=== PATIENT | male | born 1945 | race Caucasian/White ===

== ENCOUNTER 2022-08-26 09:00 | Outpatient (RCR) | payer MEDICARE, OTHER, SELFPAY | END 2023-01-15 11:49 | disposition home or self-care (01) | LOC: HO.OT 09:00 | PROVIDERS: PCP Student in an Organized Health Care Education/Training Program; Visit Provider Surgery Vascular Surgery | DX: I89.0 Lymphedema, not elsewhere classified (principal) | CPT/HCPCS: 97110; 97140; 97167 ==

== ENCOUNTER 2024-12-20 10:56 | Outpatient (AMB) | payer MEDICARE, OTHER, SELFPAY ==
--- OUTSIDE RECORDS SUMMARY | 2024-12-20 13:20 | XMS_ITS | Clinical Summary ---
Author Organization [facility]. Address [address] [place] [address] Phone Care Team Providers Care Head Teller Name Role Phone Fernanda Munoz Primary Care Provider [phone] Allergies Active Allergy Reactions Criticality Noted Date Comments Doxycycline 07/05/2012 Other reaction(s): Rash Sulfamethoxazole-Trimethopri m 12/01/2023 Other Reaction(s): Rash Terbinafine Hcl Rash Low 01/31/2020 Medications aspirin (ST HARDIK) 81 MG EC tablet Take 81 mg by mouth 1 (one) time each day Active valsartan-hydro CHLOROthiazide (DIOVAN-HCT) 320-25 MG per tablet Take 1 tablet by mouth 1 (one) time each day Active Multiple Vitamin (multivitamin) tablet Take 1 tablet by mouth 1 (one) time each day Active cholecalciferol (VITAMIN D-3) 25 MCG (1000 UT) tablet Take 1,000 Units by mouth 1 (one) time each day Active metFORMIN (GLUCOPHAGE) 500 MG tablet Take 500 mg by mouth in the morning and 500 mg in the evening. Take with meals. Active NIFEdipine XL (PROCARDIA XL) 60 MG 24 hr tablet Take 1 tablet (60 mg total) by mouth 1 (one) time each day Do not crush, chew, or split. 90 tablet 3 09/02/2024 6 Active Active Problems Problem Noted Date Diagnosed Date Chronic kidney disease, stage 2 (mild) 4 Stage 3a chronic kidney disease 03/27/2023 Disorder of abdominal wall 09/19/2022 Pain of knee region 09/19/2022 Postnasal drip 09/19/2022 Severe obesity 09/19/2022 Spinal stenosis of lumbar region 09/19/2022 Injury of kidney 11/01/2021 Hypertensive chronic kidney disease 10/05/2021 Hypertension 04/09/2010 Resolved Problems Problem Noted Date Diagnosed Date Resolved Date Allergic rhinitis 12/07/2021 12/07/2021 Gastroesophageal reflux disease 12/07/2021 12/07/2021 Obese class I 12/07/2021 12/07/2021 Peripheral edema 11/01/2021 12/07/2021 Tinnitus 04/08/2013 12/07/2021 Immunizations Immunization Administration Dates Next Due DT 07/18/2005 Moderna SARS-COV-2 02/16/2021,07/09/2020, 021 Pneumococcal Conjugate 13-Valent 04/03/2015 Pneumococcal Polysaccharide 06/28/2013 Tdap 04/29/2012 Zoster 05/06/2012 Family History Relation Status Comments Mother Social History Tobacco Use Types Packs/Day Years Used Date Smoking Tobacco: Former Cigarettes Smokeless Tobacco: Never Tobacco Cessation:Counseling Given: Not Answered Alcohol Use Standard Drinks/Week Comments Yes 0 (1 standard drink = 0.6 oz pur e alcohol) Sex and Gender Information Value Date Recorded Sex Assigned at Not on file Legal Sex Male 8:01 AM EDT Gender Identity Not on file Sexual Orientation Not on file Last Filed Vital Signs Vital Sign Reading Time Taken Comments Blood Pressure 156/76 12/01/2023 1:51 PM EDT Pulse 56 09/02/2024 12:59 PM EDT Temperature - - Respiratory Rate - - Oxygen Saturation 97% 12/01/2023 1:31 PM EDT Inhaled Oxygen Concentration - - Weight 91.2 kg (201 lb) 09/02/2024 12:59 PM EDT Height 177.8 cm (5' 10 ) 12/01/2023 1:31 PM EDT Body Mass Index 28.84 12/01/2023 1:31 PM EDT Plan of Treatment Upcoming Encounters Date Type Department Care Team (Late st Contact Info) Description 09/01/2025 1:00 PM EDT Office Visit [facility] [address] [place] [phone] Leobardo Salomon MD [address] [address] Health Maintenance Due Date Last Done Comments Diabetes: Hemoglobin A1C 12/01/2023 Diabetes: Ophthalmology Exam 12/01/2023 Diabetes: Pedal Pulse Checked 12/01/2023 Diabetes: Sensory Foot Exam 12/01/2023 Diabetes: Visual Foot Exam 12/01/2023 Influenza Vaccine (#1) 2024 03/20/2022 Pneumococcal Vaccine: 50+ Years Completed 04/03/2015, 06/28/2013 Hepatitis B Vaccine Aged Out No longe r eligible based on patient's age to complete this topic Insurance [facility] Medicare [facility] Care Teams Head Teller Relationship Specialty Start Date End Date Fernanda Munoz PA [address] [place] [address] PCP - General 09/19/22
== END 2024-12-20 10:57 | disposition home or self-care (01) ==
LOC: HO.HMGAL 10:56
PROVIDERS: PCP Student in an Organized Health Care Education/Training Program; Visit Provider Registered Nurse Emergency
DX: J30.89 Other allergic rhinitis (principal)
CPT/HCPCS: 95117; 95165

== ENCOUNTER 2024-12-27 12:41 | Outpatient (AMB) | payer MEDICARE, OTHER, SELFPAY ==
--- OUTSIDE RECORDS SUMMARY | 2024-12-27 17:23 | XMS_ITS | Clinical Summary ---
Author Organization [facility] Address [address] [place] [address] Phone Care Team Providers Care Dispute Specialist Name Role Phone Fernanda Munoz Primary Care Provider [phone] Allergies Active Allergy Reactions Criticality Noted Date [...] Visit [facility] [address] [place] [phone] Leobardo Salomon MD [address] [address] Health Maintenance Due Date Last Done Comments Diabetes: Hemoglobin A1C 12/01/2023 Diabetes: Ophthalmology Exam 12/01/2023 Diabetes: Pedal Pulse Checked 12/01/2023 Diabetes: Sensory Foot Exam 12/01/2023 Diabetes: Visual Foot Exam 12/01/2023 Influenza Vaccine (#1) 2024 03/20/2022 Pneumococcal Vaccine: 50+ Years Completed 04/03/2015, 06/28/2013 Hepatitis B Vaccine Aged Out No longe r eligible based on patient's age to complete this topic Insurance [facility] Care Teams Dispute Specialist Relationship Specialty Start Date End Date Fernanda Munoz PA [address] [place] [address] PCP - General 09/19/22
== END 2024-12-27 12:43 | disposition home or self-care (01) ==
LOC: HO.HMGAL 12:41
PROVIDERS: PCP Student in an Organized Health Care Education/Training Program; Visit Provider Registered Nurse Emergency
DX: J30.89 Other allergic rhinitis (principal)
CPT/HCPCS: 95117; 95165

== ENCOUNTER 2025-01-26 10:49 | Outpatient (AMB) | payer MEDICARE, OTHER, SELFPAY ==
--- OUTSIDE RECORDS SUMMARY | 2025-01-26 13:07 | XMS_ITS | Data Portability ---
Author Organization [facility] Address [address] [place] [address] Care Team Providers Care Training Program Developer Name Role Phone TRE BARR Primary Care Provider [phone] Assessment Encounter Date Assessment Date Assessment LastModified by Organization Details LastModified Time 07/23/2024 07/23/2024 A/ L wrist arthritis f/u, Bilat hand numbness with clin dx CTS based on clinical exam today P/ 1. L wrist dorsal RC injection is performed today. 2. We discussed the pathophysiology of carpal tunnel syndrome and treatment options including bracing, cortisone injection, surgical release as well as diagnostic option of a nerve. He declines these measures today but understands they are an option as symptoms worsen. He will follow-up for these problems on an as-needed basis. [email or web address] Not available 07/23/2024 16:40:15 Plan of Treatment Reminders Order Date Submit Date Provider Last Modified By Organization Details Last Modified Time Details Appointments None record ed. Lab None record ed. Referral None record ed. Procedures None record ed. Surgeries None record ed. Imaging None record ed. Medication Orders None record ed. Patient TargetsNo targets recorded. Patient InstructionsNo instructions recorded. Reason for Referral None Reported. Problems Name Problem SNOMED Code Status Onset Date Resolution Date Notes Provider Name and Address Organization Details Recorded Time Osteoarthr itis of right knee joint 8468422402982 00 Active 2021 Status : 'A'; Not Available [facility] 4 11:13:59 Problem Notes None recorded. Procedures Surgical History Date Name Laterality Status Provider Name and Address Organization Details Recorded Time Wrist Joint Kenalog Injection, L/R completed Emerald Samson MD [address], [place], [address], [facility] 07/23/2024 16:38:52 Imaging Results None recorded. Procedure Notes None recorded. Medical Equipment None Reported. Allergies Allergen ID Allergen Name Allergen Category Reaction Reaction Severity Criticality Documentation Date Start Date Code Code System Note Provider Name and Address Organization Details Recorded Time 713936 Lamisil medicatio n Not available Not available Not available 07/23/2024 75522 6 RxNorm Alesha Hayes [facility] 5 15:15:39 53531 doxycycli ne hyclate medicatio n Not available Not available Not available 06/16/20232020 75059 RxNorm Not Available [facility] 12:57:35 94351 Bactrim medicatio n Not available Not available Not available 06/16/20232022 32071 9 RxNorm Not Available [facility] 4 12:57:35 Medications Name Sig Start Date Stop Date Status Note LastModified by Organization Details LastModified Time amoxicillin 500 mg capsule 4 pills 1 hour prior to dental appt 2024 active Not Available Not Available Not Avai lable clonidine 0.2 mg/[address] PATCH ON THE SKIN ONCE PER WEEK active Not Available Not Available No t Available fluocinonid e 0.05 % topical ointment PLEASE SEE ATTACHED FOR DETAILED DIRECTION S active Not Available Not Available No t Available sildenafil 100 mg tablet TAKE 1 TABLET BY MOUTH 1/2 HOUR BEFORE SEXUAL INTERCOUR SE active Not Available Not Available No t Available ketorolac 0.5 % eye drops INSTILL 1 DROP INTO LEFT EYE 3 TIMES DAILY FOR 4 DAYS. active Not Available Not Available No t Available clonidine HCl 0.2 mg tablet TAKE 1 TABLET BY MOUTH TWICE A DAY active Not Available Not Available No t Available erythromyci n 5 mg/gram (0.5 %) eye ointment APPLY A 1/4 INCH TO RIGHT UPPER LID TWO TIMES A DAY FOR 4 DAYS active Not Available Not Available No t Available pseudoephed rine-guaife nesin ER 80-700 mg tablet,exte nded release Percocet 5-325MG Tablet 1-2 Q 4-6 Hours Prn 01/06 completed Statu s: 'Disc ontin ued'; Not Available Not Available Not Available fluticasone propionate 50 mcg/actuati on nasal spray,suspe nsion USE 1 SPRAY INTO EACH NOSTRIL TWICE A DAY active Not Available Not Available No t Available metformin ER 500 mg tablet,exte nded release 24 hr TAKE 1 TAB TWICE DAILY WITH BREAKFAST & DINNER. active Not Available Not Available No t Available valsartan 320 mg-hydrochl orothiazide 25 mg tablet TAKE 1 TABLET BY MOUTH EVERY DAY active Not Available Not Available No t Available oxycodone HCl-oxycodo ne-ASA please take 1-2 tablets by mouth every 4 hours as needed for severe painDO NOT DRIVE WHILE TAKING THIS MEDICATIO N 01/06 completed Statu s: 'Disc ontin ued'; Not Available Not Available Not Available Vitals Date Recorded Body height Body mass index (BMI) Body weight Provider Name and Address Organization Details Last Updated DateTime 07/23/2024 177.8 cm 28.7 kg/m2 14077.47 g Alesha Hayes [place] [facility] [place] [facility] 07/23/2024 15:15:23 Social History None recorded. Functional Status None recorded. Mental Status None recorded. Family History Nothing Reported. Medical History No medical history recorded. Past Encounters Encounter ID Performer Location Encounter Start Date Encounter Closed Date Diagnosis/Indication Diagnosis SNOMED-CT Code Diagnosis ICD10 Code Diagnosis IMO Codes Diagnosis Note [id number] MD COREY Hernandez [address] [place] [address] 07/23/2024 14:59:21 08/03/2024 08:29:23 Carpal tunnel syndrome of right wrist 3909796092 41610 G56.01 [id number] Carpal derek mary syndrome of left wrist 7656225872 25540 G56.02 7654601 Arthritis of left wrist 7075323708 787786 M19.032 [id number] Health Concerns Section Related Observation LastModified by Organization Detai ls LastModified Time None Recorded Concern Status LastModified by Organization Details LastModified Time None Recorded Advance Directives Directive None Recorded Payers Insurance Date Sequence Insurance Name Policy Number Policy Ta Covered Member ID Ta Member ID Guarantor Name 08/03/2024 2 [facility] INDEMNITY [employer] (MEDICARE SUPPLEMENT) [id number] Cedric Iglesias [id number] Cedric Iglesias 07/23/2024 1 MEDICARE B-[place]: [facility] [employer] Cedric Iglesias [id number] Cedric Iglesias Notes Date Note Type Note Provider Name and Address Organization Details Recorded Time 07/23/2024 text/html ROS as noted in the HPI 78 yo male seen for. He has previously been treated with cortisone injections and is here today hoping for a left wrist follow up evaluation of left wrist pain joint injection. He also notes some complaints of numbness in the thumb index and long finger. He reports that he has numbness that is worse at night. He is not currently wearing any splints for this. Emerald Samson MD [address] [place] [address] [address], [place], [address], [facility] [place] [facility] 07/23/2024 16:42:27
--- OUTSIDE RECORDS SUMMARY | 2025-01-26 13:07 | XMS_ITS | Clinical Summary ---
Author Organization [facility] Address [address] [place] [address] Phone Care Team Providers Care Terrazzo Helper Name Role Phone Fernanda Munoz Primary Care Provider [phone] Allergies Active Allergy Reactions Criticality Noted Date [...] Visit [facility] [address] [place] [phone] Leobardo Salomon MD [address] [address] Health Maintenance Due Date Last Done Comments Diabetes: Hemoglobin A1C 12/01/2023 Diabetes: Ophthalmology Exam 12/01/2023 Diabetes: Pedal Pulse Checked 12/01/2023 Diabetes: Sensory Foot Exam 12/01/2023 Diabetes: Visual Foot Exam 12/01/2023 Influenza Vaccine (#1) 2024 03/20/2022 Pneumococcal Vaccine: 50+ Years Completed 04/03/2015, 06/28/2013 Hepatitis B Vaccine Aged Out No longe r eligible based on patient's age to complete this topic Insurance [facility] Medicare Medicare [facility] Care Teams Terrazzo Helper Relationship Specialty Start Date End Date Fernanda Munoz PA [address] [place] [address] PCP - General 09/19/22
== END 2025-01-26 10:49 | disposition home or self-care (01) ==
LOC: HO.HMGAL 10:49
PROVIDERS: PCP Student in an Organized Health Care Education/Training Program; Visit Provider Registered Nurse Emergency
DX: J30.89 Other allergic rhinitis (principal)
CPT/HCPCS: 95117; 95165

== ENCOUNTER 2025-02-23 08:59 | Outpatient (AMB) | payer MEDICARE, OTHER, SELFPAY ==
--- OUTSIDE RECORDS SUMMARY | 2025-02-23 09:34 | XMS_ITS | Clinical Summary ---
Author Organization [facility] Address [address] [place] [address] Phone Care Team Providers Care Metal Framer Name Role Phone Fernanda Munoz Primary Care Provider [phone] Allergies Active Allergy Reactions Criticality Noted Date [...] Visit [facility] [address] [place] [phone] Leobardo Salomon MD [address] [address] Health Maintenance Due Date Last Done Comments Diabetes: Hemoglobin A1C 12/01/2023 Diabetes: Ophthalmology Exam 12/01/2023 Diabetes: Pedal Pulse Checked 12/01/2023 Diabetes: Sensory Foot Exam 12/01/2023 Diabetes: Visual Foot Exam 12/01/2023 Influenza Vaccine (#1) 2024 03/20/2022 Pneumococcal Vaccine: 50+ Years Completed 04/03/2015, 06/28/2013 Hepatitis B Vaccine Aged Out No longe r eligible based on patient's age to complete this topic Insurance [facility] Medicare Medicare [facility] Care Teams Metal Framer Relationship Specialty Start Date End Date Fernanda Munoz PA [address] [place] [address] PCP - General 09/19/22
== END 2025-02-23 09:00 | disposition home or self-care (01) ==
LOC: HO.HMGAL 08:59
PROVIDERS: PCP Student in an Organized Health Care Education/Training Program; Visit Provider Registered Nurse Emergency
DX: J30.89 Other allergic rhinitis (principal)
CPT/HCPCS: 95117; 95165